=== PATIENT | female | born 1945 | race Caucasian/White ===

== ENCOUNTER 2018-03-26 05:19 | Inpatient (IN) ==
--- NOTE | 2018-03-24 16:35 | MH ---
cc: Harjinder Greer MD DATE OF ADMISSION: 03/26/2018 She is to be admitted to the hospital on 26 March 2018. ADMITTING DIAGNOSIS: Osteoarthritis, right shoulder. HISTORY OF PRESENT ILLNESS: The patient is a 72-year-old white female who has experienced pain of the right shoulder of almost 1 year duration. She noted the gradual onset of her discomfort initially involving the lateral aspect of her cervical spine, but extending into the shoulder and upper extremity region with pain radiating into her right hand. She was referred by her primary care physician for neurosurgical consultation, which apparently included an evaluation of her brachial plexus with no significant abnormality being identified. She was prescribed hydrocodone for pain management, which she was reluctant to utilize on a regular basis. She has also been applying Aspercreme with limited benefit. She initially presented to the undersigned physician in 10/2017 and at that time reported ongoing pain of her shoulder area. She had completed previous x-ray studies that did report moderate osteoarthritis of the glenohumeral joint. Findings and treatment options were reviewed with the patient at that time. A recommendation was made to proceed with a course of physical therapy for which the patient was in full agreement and thus a referral was made in this regard. The patient unfortunately remained symptomatic about the shoulder area and subsequently underwent an MRI scan, the results of which identified moderately severe glenohumeral joint arthrosis and a moderately severe distal supraspinatus tendinosis and a small partial-thickness bursal surface tear. There was a moderate sized glenohumeral joint effusion. The patient remained symptomatic with pain about the shoulder area for which she declined the offer for proceeding with additional therapy intervention and elected to continue with exercise activities under her own supervision. Unfortunately, she experienced ongoing pain about her right shoulder that was unresponsive to an injection about the shoulder area while she was continuing to take meloxicam on a daily basis. Findings and treatment options were reviewed with the patient at that time. Emphasis was made regarding the fact that the decision to proceed with surgery would be left entirely to the patient's discretion. The patient considered her options in this regard and again returned to the office in more recent followup indicating that ongoing pain was limiting her ability to conform to all activities of daily living and she felt she was ready to proceed with surgery as had previously been discussed. In compliance with her wishes, she is currently being admitted for right reverse shoulder arthroplasty. PAST MEDICAL HISTORY, HOSPITALIZATIONS AND SURGERIES: Have included bilateral arthroscopic surgeries of the knees followed by a right total knee arthroplasty, laser surgery of both eyes, medical management for a right spontaneous pneumothorax, reduction mammoplasty, cosmetic facial surgery, right carpal tunnel release, bilateral cataract excisions, colonoscopy, upper endoscopy and laparoscopic cholecystectomy. The patient's medical illnesses include migraine headaches for which she takes sumatriptan 50 mg p.r.n. She also continues to take meloxicam 15 mg daily. ALLERGIES: SHE DENIES ANY KNOWN DRUG ALLERGIES. REVIEW OF SYSTEMS: She wears glasses for reading purposes; has a history of migraine headaches. No seizure or syncope. Occasional sinus congestion. No epistaxis. Auditory acuity intact. No tinnitus. No bleeding gums or dysphagia. Complete upper and partial lower dentures. No cough, shortness of breath or tuberculosis. She has had a history of pneumonia. No angina or heart disease. Appetite good. Bowel movements regular. No hepatitis. Status post cholecystectomy. No hemorrhoids. She has had a positive history of both gastric and duodenal ulcers, but no associated bleeding. No urinary tract infection, no kidney stones, no previous fractures. No psychiatric illness. Her remaining review of systems is unremarkable and noncontributory. FAMILY HISTORY: The patient has been for three years. She has 1 son who has a history of renal cell carcinoma. Her daughter is status post bilateral mastectomy with subsequent chemotherapy. FAMILY HISTORY: Otherwise positive for hypertension, diabetes, heart disease, rectal esophageal and breast cancer. SOCIAL HISTORY: The patient completed a high school education. She is unemployed. Denies active use of tobacco for the past 7 years, but had been a 50-pack user in the past. Ethanol consumption on a very limited in social basis, primarily in the form of a glass of wine. PHYSICAL EXAMINATION: GENERAL: Height 5 feet 2 inches, weight 142 pounds. An alert, oriented, and responsive 72-year-old white female who sits quietly upon the examination table with no apparent distress. HEAD, EARS, EYES, NOSE AND THROAT: Pupils are equally round and reactive to light. Bilateral corneal arcus. Extraocular movements full. Sclerae are clear. External nares clear. External auditory canals clear. Edentulous in the maxillary distribution, semi-edentulous in the mandibular distribution. Mucous membranes pink and moist. Pharynx clear. NECK: Supple. Active range of motion with mild discomfort at the extremes of mobility that the patient reports as being chronic in nature. Carotid pulse is palpable bilaterally. Trachea midline. Thyroid without thyroid enlargement. LUNGS: Clear to auscultation and percussion. No CVA tenderness. No discomfort elicited throughout the dorsolumbar spine. HEART: Regular rate and rhythm. No murmur or gallop. ABDOMEN: Soft, nontender, bowel sounds present. PELVIC: Per primary care physician. EXTREMITIES: Right shoulder: No significant tenderness is elicited with palpation about the shoulder area. There is limited mobility of the shoulder joint in all ranges assessed with the patient unable to actively elevate her right hand above the head level. Internal rotation is limited to the posterior waist level. Obvious difficulty and limited mobility with cross arm positioning of right and the left shoulder. No sensation of crepitation or instability about the glenohumeral joint. Drop arm test, positive Weber sign. Discomfort elicited with stress, internal and external rotation. Msws strength intact. Sensory intact. NEUROLOGIC: Cranial nerves II-XII grossly intact. IMPRESSION: Osteoarthritis, right shoulder. PLAN: Right reverse shoulder arthroplasty. The nature of the planned surgical procedure, the potential complications and risks associated, the expectations of surgery and the consent form were thoroughly reviewed with the patient prior to her admission to the hospital. Tahir has indicated her full understanding regarding all of the above and given consent to proceed with treatment as outlined. Medical evaluation and clearance for surgery completed by her primary care physician, Dr. Ulloa. MD PJ Arvizu/xiang , 04:09 PM , 04:25 PM
[2018-03-26] MEDS ORDERED: Chlorhexidine Gluconate 2% 1 Pack (2 Cloths) TOPICAL ONE (05:45)
[2018-03-26] MEDS ORDERED: Metoprolol Tartrate 25 MG Tablet PO ONE (05:45)
[2018-03-26] MEDS ORDERED: Sodium Chlor 0.9% Inj 500 ML IV.SIG SCH (06:00)
[2018-03-26] MEDS ORDERED: ceFAZolin 2 GM Premix Inj 2 GM/50 ML PIGGYBACK IV.SIG SCH (06:00)
[2018-03-26] MEDS ORDERED: fentaNYL Citrate Inj 100 MCG/2 ML Ampul ONE ×2 (06:18→09:29)
[2018-03-26] MEDS ORDERED: Tranexamic Acid Inj 1,000 MG in Sodium Chlor 0.9% Inj 100 ML IV.SIG SCH ×2 (07:00→10:00)
[2018-03-26] MEDS ORDERED: Aluminum/Magnesium/Simethacone Susp 30 ML UDC PO PRN (09:47)
[2018-03-26] MEDS ORDERED: *Meperidine Inj 25 MG/ML Vial PERIprocedural Use ONLY ONE (09:47)
[2018-03-26] MEDS ORDERED: Bisacodyl 10 MG Supp RECTAL PRN (09:47)
[2018-03-26] MEDS ORDERED: Naloxone Inj 0.4 MG/ML Vial IV.PUSH PRN (09:47)
[2018-03-26] MEDS ORDERED: Post-op Orders (for Pharmacy) OTHER STA (09:47)
[2018-03-26] MEDS ORDERED: Morphine Inj 4 MG/ML Vial IV.PUSH PRN (09:47)
[2018-03-26] MEDS ORDERED: Acetaminophen 325 MG Tablet PO PRN (09:47)
[2018-03-26] MEDS ORDERED: Zolpidem Tartrate 5 MG Tablet PO PRN (09:47)
[2018-03-26] MEDS ORDERED: Morphine Inj 30 MG/30 ML PCA.VIAL PCA PRN (09:47)
--- NOTE | 2018-03-26 09:52 | P.DCO ---
- Diagnosis (1) DJD of right shoulder Status: Acute - Physical Therapy Order: Evaluate and treat, Improve ambulation, Strength and gait training - Occupational Therapy Order: Evaluate and treat, Improve ADL, Gross motor coordination, Fine motor coordination - Home Health Nursing Order: Wound care and dressing changes, Nursing assessment with vital signs - Home Health Aide Order: To assist in: Bathing and personal care, fell cutter and meal prep - Water Leak Repairer Order: To evaluate: Living conditions/environment, Support services Order: To provide: Long range planning, Community services - Case Management Consult Yes - Certification I have seen patient Tahir Slaughter on 03/26/18. My clinical findings support the need for the requested home health care services because: Limited ability to care for self, High risk of falls I certify that my clinical findings support that this patient is homebound because: Post-op weakness, Unsteady gait/balance, Unsafe to leave home unassisted (1) DJD of right shoulder Qualifiers: Osteoarthritis type: primary Qualified Code(s): M19.011 - Primary osteoarthritis, right shoulder
[2018-03-26] MEDS ORDERED: [UNRECOGNIZED DRUG - OTHER] IV.SIG SCH (10:00)
--- NOTE | 2018-03-26 10:20 | MP ---
cc: Harjinder Greer MD DATE OF OPERATION: 03/26/2018 PREOPERATIVE DIAGNOSIS: Osteoarthritis of the right shoulder. POSTOPERATIVE DIAGNOSIS: Osteoarthritis of the right shoulder. PROCEDURE PERFORMED: Right reverse shoulder arthroplasty. SURGEON: Harjinder Greer MD. ANESTHESIA: General endotracheal. INDICATIONS: This is a 72-year-old white female with a 1-year history of progressive right shoulder pain of gradual onset unrelated to injury or unusual activity. She had undergone initial evaluation with her primary care physician, which resulted in neurosurgical consultation with an evaluation of her brachial plexus and apparently no significant abnormality being identified. She was prescribed hydrocodone for pain management but was reluctant to utilize a narcotic medication on a regular basis. She was applying Aspercreme with limited benefit. She presented to the undersigned physician in October of this year and at that time reported ongoing pain of her shoulder area. She has completed previous x-ray studies that did report moderate osteoarthritis of the glenohumeral joint. Findings and treatment options were reviewed. Recommendation was made to proceed with a course of physical therapy, which the patient was in full agreement and initiated treatment in this regard. Unfortunately, she remains symptomatic and later underwent an MRI scan, the results of which identified moderately severe glenohumeral joint arthrosis, moderately severe distal supraspinatus tendinosis and a small partial-thickness bursal surface tear, moderate size glenohumeral joint effusion. The patient remained symptomatic with pain about the shoulder area, but declined the offer for proceeding with additional therapy treatment and elected to continue with exercise activities under her own supervision. Unfortunately, her shoulder pain persisted, being unresponsive to followup cortisone injection. She was continuing to take meloxicam on a daily basis. When she returned to the office in followup disposition, she described obvious limitations regarding her activities of daily living as related to persistent pain about the shoulder area. Findings and treatment options were again reviewed, the option of proceeding with operative treatment that would involve a reverse shoulder arthroplasty were outlined in detail. Emphasis was made regarding the fact that the decision to proceed with surgery would be left entirely to the patient's discretion. The patient considered her options in this regard; and given her failure to respond to conservative management and her persistent symptoms, she elected to proceed with surgery at this time. In compliance with her wishes, she was scheduled for admission in order that the above be accomplished. FORMAT: Following the induction of satisfactory general anesthesia by endotracheal intubation as completed per the Department of Anesthesia, the patient was positioned upon the operating table in a modified beach chair configuration. The right shoulder and upper extremity proper were isolated with a U-drape, thereafter being prepped with Betadine solution and draped into a sterile field in the routine manner. Prior to initiation of the actual procedure, the standard timeout protocol was completed. All parameters were appropriately addressed and confirmed by operating room personnel. A standard anterior approach to the shoulder was initiated through a sharp skin incision extending from the inferior border of the clavicle, along the deltopectoral interval to the axillary crease. The incision was developed through underlying subcutaneous tissue with hemostasis maintained by electrocautery. By deepening dissection, the deltopectoral interval was developed in a [id number] orientation with the cephalic vein being exposed. The vein was retracted laterally with a cuff of deltoid musculature. Digital release of subdeltoid adhesions facilitated retractor placement with the shoulder maintained in a slightly externally rotated orientation. The circumflex humeral vessels were identified, clamped, and coagulated. The biceps tendon was thereafter exposed and divided at the bicipital groove. A limited release of the pectoralis insertion facilitated exposure. Thereafter, the stump of the tendon was tenodesed to the pectoralis tendon site. The excess portion of the tendon was excised. With the shoulder maintained in an externally rotated orientation, a release of the subscapularis tendon and capsular tissue along the anatomic neck of the humerus was completed, the more medial segment of which was tagged with #1 TiCron sutures. The humeral head was delivered into the wound site and an entry point was initiated superiorly adjacent to the bicipital groove facilitating an exposure into the humeral canal. Sequential rasping was accomplished from 6 through 13 mm with the 13 mm sizing determined to be satisfactory. The outrigger guide was positioned; and in approximately 30 degrees of retroversion, the humeral head was resected. Sequential broaching was thereafter accomplished through 13 mm with the 13 mm stem determined to be satisfactory. The covering cap was positioned and attention was thereafter redirected to the glenoid region. Retractors were placed posteriorly, superiorly, and anteriorly facilitating exposure. The residual stump of the biceps tendon was resected as well as the glenoid labrum and a segment of the superior and middle glenohumeral ligament. The glenoid was exposed in a 360-degree orientation. Hash anthony were placed from the 12 to 6 o'clock position and the 9 to 3 o'clock position, facilitating orientation of the central portion of the glenoid. A guide pin was placed at the central point, utilizing the 10-degree inferior guide. With the pin in place, the stepdown reamer was passed over the guide pin, creating a peg hole centrally. Thereafter, a 25 mm glenosphere mini baseplate was firmly seated. A central 35 mm screw was placed and thereafter peripheral locking screws of 25 mm sizing in the superior and inferior positions and 15 mm in the posterior and anterior positions. With the baseplate firmly seated, a 36 mm glenosphere with maximum inferior offset was firmly attached to the baseplate. Attention returned to the proximal humerus. With the [address], a trial reduction was completed utilizing a 36 x 44 mm humeral bearing insert. The shoulder was reduced and carried through a passive range of motion was stability demonstrated throughout the arc of mobility. An open dislocation was completed and the trial components being removed, the humeral canal was irrigated with antibiotic saline solution and thereafter, the 13 mm mini humeral stem was firmly seated to which a 44 mm humeral tray with a 36 x 44 mm humeral bearing insert attached was positioned onto the stem and open reduction completed and repeat range of motion again noted stability as previously described. Final irrigation was accomplished with hemostasis being maintained. The subscapularis tendon was repaired with #1 TiCron suture. The deltopectoral interval was reapproximated with a running #0 Vicryl suture. The remaining portion of the wound was closed in layers in the routine manner, skin margins being reapproximated with a running subcuticular 3-0 Vicryl suture over which Steri-Strips were applied. Xeroform gauze and a bulky dry sterile dressing were placed. The extremity being supported in an arm sling, anesthesia was discontinued. The patient was transferred to a hospital bed and returned to the recovery room in satisfactory condition, having tolerated her operative procedure well. ESTIMATED BLOOD LOSS: Approximately 150 mL as determined per anesthesia. IMPLANTS: All implants were of the [employer] and coal transport operator. MD PJ Arvizu/rs , 09:38 AM , 09:52 AM
[2018-03-26] MEDS ORDERED: Morphine Inj 30 MG/30 ML PCA.VIAL PCA ONE (10:31)
--- NOTE | 2018-03-26 10:42 | XR ---
EXAM DATE: 03/26/2018 10:37 AM EDT AGE/SEX: 72 years / Female INDICATIONS: Post op right total shoulder replacement. CLINICAL DATA: This is the patient's initial encounter. Patient reports that signs and symptoms have been present for 1 day and indicates a pain score of Nonresponsive. MEDICAL/SURGICAL HISTORY: . Hypertension. Cervical stenosis. Lung disease. Right knee replaceme nt. Breast reduction. Breast implants. . COMPARISON: No prior exams available for comparison. FINDINGS: A single frontal view of the right shoulder status post shoulder arthroplasty. The hardware appears i ntact. Soft tissue gas is present about the shoulder. CONCLUSION: Postop total shoulder arthroplasty. Electronically signed by: Glynn Pabon MD 03/26/2018 10:41 AM EDT
[2018-03-26] MEDS ORDERED: Tranexamic Acid Inj 1,000 MG in Sodium Chlor 0.9% Inj 100 ML IV.SIG ONE (11:00)
[2018-03-26] MEDS ORDERED: ZOLEDRONIC ACID IV.SIG SCH (13:00)
[2018-03-26] MEDS: ceFAZolin 1 GM Premix Inj 1 GM/50 ML FROZ.PIGGY IV.SIG SCH ×2 (13:00→18:41)
--- NOTE | 2018-03-26 16:08 | P.CON ---
History of Present Illness Service: [facility] Consult date: 03/26/18 Requesting Physician: Harjinder Greer Reason for Consult: MEDICAL MANAGEMENT Primary Care Provider: Vinicio Ulloa MD Chief Complaint: SHOULDER PAIN History of Present Illness: This is a pleasant 72-year-old white female with significant past medical history of osteoarthritis, migraines. Patient has history of osteoarthritis of the right shoulder that resulted in severe pain and impairment of activities of daily living. She failed outpatient therapy and was recommended for surgery. Patient underwent right reverse shoulder arthroplasty. She tolerated procedure well, she received a block therefore she has no pain at this time. Her right arm is numb. Denies any recent fever, chills. No chest pain, shortness of breath, no nausea, no vomiting, no diarrhea. Indicates that she is generally healthy and does not have significant medical problems. Does have occasional migraines for which she takes sumatriptan. Hospitalist services are requested for medical management. Review of Systems All other systems reviewed negative except as stated in HPI [facility] - History History Provided By: Patient - Medical History Medical History: Medical History (Last Updated 03/26/18 @ 16:04 by DANIEL Sullivan) Hx of pneumothorax Migraine Osteoporosis Wears dentures Wears partial dentures - Surgical History Surgical History: Surgical History (Last Reviewed 03/26/18 @ 16:04 by DANIEL Sullivan) History of arthroscopy of left knee History of augmentation of both breasts History of total right knee replacement Hx of bilateral breast reduction surgery Hx of cataract removal with insertion of prosthetic lens Hx of cholecystectomy - Family History Family History: Family History (Last Updated 03/26/18 @ 16:05 by DANIEL Sullivan) Father Esophageal cancer Mother Coronary artery disease - Social History I have reviewed the patient's Social History: Yes - Tobacco History Second Hand Smoke Exposure: No Smoking Status: Former smoker (quit 7 years ago) - Alcohol History How Often Do You Have a Drink Containing Alcohol: Never - Substance Use History Substance History: No History of Abuse - Travel History Recent Travel in the [facility] Within the Last 8 Weeks: No - Immunization History Tetanus Immunization: Unsure Hx Influenza Vaccine This Season: Yes Medications and Allergies Active Medications: Active Medications Acetaminophen (Tylenol) 650 mg PO Q6H PRN PRN Reason: FEVER > 102 F Hydrocodone Bitart/Acetaminophen ([place] 5/325) 1 tab PO Q4H PRN PRN Reason: PAIN LESS THAN 5 ON SCALE Hydrocodone Bitart/Acetaminophen ([place] 5/325) 2 tab PO Q6H PRN PRN Reason: PAIN SCALE 5 TO 10 Al Hydrox/Mg Hydrox/Simethicone (Mag-Al Plus Susp Liq) 30 ml PO Q6H PRN PRN Reason: INDIGESTION Al Hydroxide/Mg Hydroxide (Milk Of Magnesia Liq) 30 ml PO BID PRN PRN Reason: Mild Constipation Aspirin (Aspirin) 325 mg PO BID GARRISON Bisacodyl (Dulcolax Supp) 10 mg RECTAL DAILY PRN PRN Reason: SEVERE CONSITIPATION Cefazolin Sodium/Dextrose (Ancef 2 Gm Premix Inj) 2 gm in 50 mls @ 100 mls/hr IV.SIG CAFETERIA COUNTER ATTENDANT [facility] Stop: 03/30/18 05:59 Last Infusion: 03/26/18 08:09 Dose: Infused Sodium Chloride (Ns Inj) 500 mls @ 30 mls/hr IV.SIG .Q10H [facility] Last Admin: 03/26/18 06:45 Dose: Not Given Lactated Ringer's (Lr 1000 Ml Inj) 1,000 mls @ 30 mls/hr IV.SIG .Q24H [facility] Stop: 03/27/18 05:44 Last Admin: 03/26/18 06:00 Dose: 30 mls/hr Lactated Ringer's (Lr 1000 Ml Inj) 1,000 mls @ 80 mls/hr IV.CONT .[id number] [facility] Last Admin: 03/26/18 11:00 Dose: 80 mls/hr Morphine Sulfate (Morphine Inj) 30 mg in 30 mls @ 0 mls/hr LUBRICATION SUPERVISOR UNSCH PRN PRN Reason: per LUBRICATION SUPERVISOR parameters Last Admin: 03/26/18 10:30 Dose: 0 mls/hr Zoledronic Acid (Reclast Inj) 100 mls @ 200 mls/hr IV.SIG ONCE GARRISON Cefazolin Sodium/Dextrose (Ancef 1 Gm Premix Inj) 1 gm in 50 mls @ 100 mls/hr IV.SIG Q6H [facility] Stop: 03/27/18 01:29 Last Infusion: 03/26/18 13:30 Dose: 0 mls/hr Lactulose (Lactulose Liq) 30 ml PO DAILY PRN PRN Reason: SEVERE CONSITIPATION Miscellaneous Information (Misc Nursing Information) 0 each OTHER UNSCH PRN PRN Reason: SEE DOSE INSTRUCTIONS Morphine Sulfate (Morphine Inj) 2 mg IV.PUSH Q3H PRN PRN Reason: BREAKTHROUGH PAIN Naloxone HCl (Narcan Inj) 0.4 mg IV.PUSH PRN PRN PRN Reason: Resp rate < 10 Ondansetron HCl (Zofran Inj) 4 mg IV.PUSH Q6H PRN PRN Reason: NAUSEA OR VOMITING Povidone Iodine (Betadine 7.5% Scrub) 1 applicatio TOPICAL ONCE GARRISON Stop: 03/30/18 05:59 Senna/Docusate Sodium (Kelli-Colace) 1 tab PO BID [facility] Sennosides (Senokot) 17.2 mg PO BID PRN PRN Reason: Moderate Constipation Sodium Chloride (Ns Flush) 2 ml IV.FLUSH BID GARRISON Sodium Chloride (Ns Flush) 2 ml IV.FLUSH PRN PRN PRN Reason: FLUSH AFTER USING IV ACCESS Sumatriptan Succinate (Imitrex) 50 mg PO Q4H PRN PRN Reason: HEADACHE Zolpidem Tartrate (Ambien) 5 mg PO HS PRN PRN Reason: INSOMNIA Allergies Allergy/AdvReac Type Severity Reaction Status Date / Time No Known Allergies Allergy Verified 03/26/18 05:40 Home Medications Medication Instructions Recorded Confirmed Type meloxicam 15 mg PO DAILY 03/24/18 03/26/18 History sumatriptan succinate 50 mg PO Q2-4H PRN 03/24/18 03/26/18 History zoledronic [id number] 5 mg IV DIRECTED 03/24/18 03/26/18 History [Reclast] Physical Exam Vital signs: Vital Signs 03/26/18 06:00 03/26/18 09:43 03/26/18 10:00 Temperature 97 F L 96.0 F L Pulse Rate 73 75 72 Respiratory Rate 12 16 Blood Pressure 144/69 H 134/82 128/72 Pulse Oximetry 100 100 03/26/18 10:15 03/26/18 10:45 03/26/18 11:00 Temperature Pulse Rate 65 68 63 Respiratory Rate 16 22 16 Blood Pressure 123/66 122/68 130/67 Pulse Oximetry 100 100 100 03/26/18 12:15 03/26/18 13:09 Temperature 96.9 F L 97.5 F L Pulse Rate 50 L 60 Respiratory Rate 16 18 Blood Pressure 149/65 H 132/60 Pulse Oximetry 100 99 Intake & Output 03/25/18 03/26/18 03/26/18 18:59 06:59 18:59 Intake Total 1310 / 1310 Output Total 100 / 100 Balance 1210 / 1210 Weight 65.2 kg 65.2 kg Intake: IV 270 / 270 Cyklokapron Inj 1,000 MG In NS 220 / 220 Inj 100 ML @ 200 mls/hr IV.SIG ONCE ONE Rx#:[id number] Ancef 2 GM Premix Inj 2 gm In 50 / 50 50 ml @ 100 mls/hr IV.SIG CAFETERIA COUNTER ATTENDANT [facility] Rx#:[id number] Anesthesia Amount 1040 / 1040 Output: Estimated Blood Loss 100 / 100 Other: Weight On Admission 65.2 kg Narrative: GENERAL: Well-nourished, well-developed patient in no apparent distress. SKIN: Warm and dry. HEAD: Atraumatic. Normocephalic. EYES: Pupils equal and round. No scleral icterus. No injection or drainage. ENT: No nasal bleeding or discharge. Mucous membranes pink and moist. NECK: Trachea midline. No JVD. CARDIOVASCULAR: Regular rate and rhythm. RESPIRATORY: No accessory muscle use. Clear to auscultation. Breath sounds equal bilaterally. GASTROINTESTINAL: Abdomen soft, non-tender, nondistended. Hepatic and splenic margins not palpable. MUSCULOSKELETAL: Right shoulder with anterior dressing in place, clean dry and intact. Sling to right shoulder in place. Decreased sensation to right arm, has a block. Limited mobility to the right arm. No other joint abnormality. Bilateral pedal pulses 2+. No pedal edema NEUROLOGICAL: Awake and alert. No obvious cranial nerve deficits. Motor grossly within normal limits. Five out of 5 muscle strength in the arms and legs. Normal speech. PSYCHIATRIC: Appropriate mood and affect; insight and judgment normal. Assessment and Plan - Assessment (1) DJD of right shoulder Code(s): M19.011 - Primary osteoarthritis, right shoulder Status: Acute - Plan 72-year-old with history of right shoulder OA failed outpatient therapy, admitted status post reverse right total shoulder arthroplasty Status post reverse right total shoulder arthroplasty History of OA -continue with post op care -pain management -Aspirin for DVT prophylaxis -PT consult History of migraines, indicates she has an occasional migraine Continue Sumatriptan PRN Thanks for this consultation. No acute medical problems at this time. We will sign off for now, reconsult if needed. Code Status: Full code Discussed Condition With: RN, pt. Discharge Planning: Per ortho team (1) DJD of right shoulder Qualifiers: Osteoarthritis type: primary Qualified Code(s): M19.011 - Primary osteoarthritis, right shoulder
[2018-03-26] MEDS ORDERED: Lidocaine PF 1% Inj 5 ML Syringe OTHER ONE (16:57)
[2018-03-26] MEDS ORDERED: Neostigmine Inj 5 MG/5 ML Syringe IV.PUSH ONE (16:57)
[2018-03-26] MEDS ORDERED: Glycopyrrolate Inj 1 MG/5 ML Syringe IV.PUSH ONE (16:57)
[2018-03-26] MEDS: Aspirin 325 MG Tablet PO SCH (20:22)
[2018-03-26] MEDS: Senna/Docusate Sodium 8.6/50 MG Tablet PO SCH (20:22)
[2018-03-27] MEDS: ceFAZolin 1 GM Premix Inj 1 GM/50 ML FROZ.PIGGY IV.SIG SCH (02:16)
--- NOTE | 2018-03-27 07:27 | MD ---
cc: Harjinder Greer MD, Dr. DATE OF DISCHARGE: 03/27/2018 ADMITTING DIAGNOSIS: Osteoarthritis, right shoulder. DISCHARGE DIAGNOSIS: Osteoarthritis, right shoulder. HISTORY: A 72-year-old white female with 1-year history of progressive right shoulder pain as related to osteoarthritis. It conformed to conservative management in the past, but became progressively more symptomatic with pain. Subsequent MRI scan identified moderately-severe glenohumeral joint arthrosis with severe distal supraspinatus tendinosis and a small partial-thickness bursal surface tear, moderate-sized glenohumeral joint fusion. The patient continued to have pain about her shoulder area that began to influence all activities of daily living for which she had indicated her desire to proceed with a more definitive course of treatment. The involvement of operative intervention involving reverse shoulder arthroplasty was outlined in detail for which the patient indicated her full understanding and expressed her desire to proceed accordingly. In compliance with her wishes, she was scheduled for admission at this time. For additional information with regard to her history of the present illness, interested parties would be directed to the documentation of her admitting history and physical report. PHYSICAL EXAMINATION: Her physical examination at the time of admission revealed no appreciable tenderness about the shoulder region. There was limited mobility in all ranges assessed with the patient unable to actively elevate her right hand above her head level. Internal rotation is limited at the posterior waist level with obvious difficulty with cross arm positioning of the right hand to the left shoulder. No sensation of crepitation instability about the glenohumeral joint. Drop arm test positive, Weber sign positive, discomfort elicited with stressed internal and external rotation. Heating Repair Technician strength intact. Sensory intact. HOSPITAL COURSE: Prior to admission to the hospital, the patient had undergone medical evaluation and clearance for surgery as completed by her primary care physician, Dr. Ulloa. She was taken to the operating room on 03/26/2018, and on that date underwent a right reverse shoulder arthroplasty completed in an uncomplicated manner. The patient was noted to have tolerated her operative procedure well. Her postoperative course stable thereafter. She was permitted progressive mobilization with restrictions regarding external rotation to be limited to no more than 45 degrees for the initial 6 weeks and thereafter being permitted mobilization as tolerated. business services clerk was consulted to assist with discharge planning. The patient expressed her desire to be transferred to a rehabilitation center to continue her mobilization in that environment. Plans were finalized in this regard; and pending medical clearance, she was orthopedically cleared for transfer on the first postoperative day, at which time she was noted to be making favorable progress with regard to initial rehabilitation program. She was scheduled to be seen in office followup in approximately 4 weeks. CONDITION AT THE TIME OF DISCHARGE: Stable. PROGNOSIS: Favorable. DISCHARGE MEDICATIONS: Include hydrocodone 5/325 #30, aspirin 325 mg 1 tab twice daily for 3 weeks #40, and Ambien 5 mg #20. MD PJ Arvizu/rs , 06:51 AM , 06:59 AM
[2018-03-27] MEDS: Aspirin 325 MG Tablet PO SCH (09:05)
[2018-03-27] MEDS: Senna/Docusate Sodium 8.6/50 MG Tablet PO SCH (09:05)
[2018-03-27 12:34] VITALS: RESP 17
[2018-03-27 16:54] VITALS: BP 135/65; PULSE 80; TEMP 97.8; O2SAT 95
== END 2018-03-27 18:14 ==
LOC: HSDI 05:19 → N06 12:42
PROVIDERS: ADMIT Orthopaedic Surgery; ATTEND Orthopaedic Surgery